=== PATIENT | female | born 1930 | race Caucasian/White ===

== ENCOUNTER 2017-01-13 15:37 | Emergency (ER) | payer MEDICARE, BC ==
--- NOTE | ~2017-01-13 | CR72 ---
[facility] A Service of [facility] & [facility] RADIOLOGY TEXT RESULTS PATIENT: ARMANI MALAGON LOCATION: [facility] : 32 UNIT #: [id number] AGE: [address]: Rd Blanco MD SEX: F ORDER DR: [id number] [facility] [address] [place], [place] [address] [id number] E MR#: [id number] Acc #: [id number] NAME: ARMANI MALAGON : 1930 SEX: F STUDY DATE/TIME: 01/13/2017 16:38 UNIT: [facility] ROOM: STUDY DESCRIPTION: CR Chest Single View Portable Attending Physician: Rd Blanco M.D. Ordering Physician: Rd Blanco M.D. Primary Care Physician: Lisa Malagon A.P.R.N. MEDICAL IMAGING REPORT This report is preliminary unless electronic signature is present EXAM Portable chest HISTORY Weakness and fever for 4 days. FINDINGS An AP portable view is obtained. Heart size is normal and the lungs appear clear. There is a calcified granuloma in the left base. CONCLUSION Negative portable chest Dictated by... Conor Esqueda M.D. THIS IS AN ELECTRONICALLY VERIFIED REPORT Conor Esqueda M.D. at 01/15/2017 7:14 AM SHAHLA/mary TD: 01/13/2017 19:04 JOB #: [id number] MEDICAL IMAGING REPORT Page 1 of 1 COPY
--- NOTE | ~2017-01-13 | EKG ---
PATIENT: ARMANI MALAGON UNIT #: [id number] Ventricular Rate: 87 BPM Atrial Rate: 87 BPM P-R Interval: 144 ms QRS Duration: 132 ms Q-T Interval: 372 ms QTC Calculation(Bezet): 447 ms P [place]: 47 degrees Calculated R [place]: 25 degrees Calculated T [place]: -5 degrees Diagnosis Line: Normal sinus rhythm Diagnosis Line: Right bundle branch block Diagnosis Line: T wave abnormality, consider inferior ischemia Diagnosis Line: Abnormal ECG Diagnosis Line: When compared with ECG of 10-NOV-2012 08:10, Diagnosis Line: No significant change was found Diagnosis Line: Confirmed by MARION PUCKETT MD ([id number]) on 01/14/2017 Diagnosis Line: 7:37:07 AM INTERPRETING MD: ITALO MCCOY
[~2017-01-13 15:37] MED LIST: CLARITIN10 M3 PO; COZAAR; ECOTRIN81 M1 PO; MULTI-VITAMIN1 EAC1 PO; VOLTAREN75 MG PO
[2017-01-13] MEDS ORDERED: BACLOFEN20 M1 PO (15:48)
[2017-01-13] MEDS ORDERED: OMEPRAZOLE40 M1 PO (15:48)
[2017-01-13] MEDS ORDERED: MACROBID100 M1 PO (15:49)
[2017-01-13] MEDS ORDERED: COZAAR100 MG PO (15:49)
[2017-01-13] MEDS ORDERED: BETAMETHASONE D15 G4 TOP (15:50)
[2017-01-13] MEDS ORDERED: NYSTATIN1 EAC1 MC (15:51)
[2017-01-13] MEDS ORDERED: ZYLOPRIM100 MG PO (15:52)
[2017-01-13] MEDS ORDERED: BAYER CHEWABLE81 MG PO (15:53)
[2017-01-13 17:09] LABS: BASOPHIL% 0.2 % (0-2.5); EOSINOPHIL% 0.1 % (0.0-7.0); HEMATOCRIT 38.6 % (35.0-45.0); HEMOGLOBIN 13.1 gm/dL (12.0-16.0); LYMPHOCYTE# 0.9 X10e3 (1.0-3.5); LYMPHOCYTE% 8.9 % (17.0-45.0); MEAN CELL VOLUME 94.7 FL (83-96); MEAN CORPUSCULAR HEMOGLOBIN 32.1 PG (28-34); MEAN CORPUSCULAR HGB CONC 33.8 g/dL (30-36); MEAN PLATELET VOLUME 7.6 FL (6.5-11.5); MONOCYTE# 0.9 X10e3 (0-1.0); MONOCYTE% 9.4 % (3.0-12.0); NEUTROPHIL# 8.2 X10e3 (1.5-7.1); NEUTROPHIL% 81.4 % (40-75); PLATELET COUNT 145 X10e3 (140-420); RED BLOOD COUNT 4.08 X10e (3.90-5.30); RED CELL DISTRIBUTION WIDTH 12.9 % (11.0-15.5)
[2017-01-13 17:14] LABS: DIFF IND NO
[2017-01-13 17:36] LABS: ALBUMIN SERUM 3.3 g/dL (3.5-5.0); BILIRUBIN, DIRECT 0.2 mg/dL (0.0-0.2); BILIRUBIN,INDIRECT 0.9 mg/dL (0.0-0.9); BILIRUBIN,TOTAL 1.1 mg/dL (0.2-2.0); GLOM FILT RATE Estimated 51.4 mL/min (>60); POTASSIUM 3.6 mmol/L (3.5-5.1); PROTEIN TOTAL SERUM 6.5 g/dL (6.0-8.3)
[2017-01-13 17:42] LABS: POC - CKMB 1.1 ng/mL (0.0-7.9); POC - TROPONIN <0.05 ng/mL (<=0.05)
[2017-01-13 18:26] LABS: URINE SOURCE CLEAN CATCH
[2017-01-13 18:37] LABS: URINE APPEARANCE CLOUDY; URINE BILIRUBIN NEG (NEG); URINE BLOOD 2+ (NEG); URINE COLOR DK YELLOW; URINE GLUCOSE NEG (NEG); URINE KETONE TRACE (NEG); URINE LEUKOCYTE ESTERASE 3+ (NEG); URINE NITRATE NEG (NEG); URINE PH 7.5 (5-8); URINE PROTEIN 2+ (NEG); URINE SPECIFIC GRAVITY 1.022 (1.003-1.035)
[2017-01-13 18:39] LABS: CULTURE INDICATED? YES; URINE BACTERIA AUWI 4+ (NEGATIVE); URINE SQUAMOUS EPITHELIAL CELL NONE SEEN /[HPF]; UWBCS1 AUWI INNUM (0-5)
== END 2017-01-13 20:31 | disposition home or self-care (01) ==
LOC: CED 15:37
PROVIDERS: Emergency Medicine
DX: N39.0 Urinary tract infection, site not specified (principal); I10 Essential (primary) hypertension; Z79.899 Other long term (current) drug therapy; Z79.82 Long term (current) use of aspirin; Z88.5 Allergy status to narcotic agent
CPT/HCPCS: 36415; 71010; 80048; 80076; 81003; 82550; 82553; 83605; 83690; 84484; 85025; 87086; 87088; 87186; 93005; 96365; 99284; J0696; J2405

== ENCOUNTER 2017-04-19 13:27 | Emergency (ER) | payer MEDICARE, BC ==
[~2017-04-19] VITALS: Ht 165.1 cm; Wt 81.6 kg
[~2017-04-19 13:27] MED LIST changes: +BACLOFEN20 M1 PO; +BAYER CHEWABLE81 MG PO; +BETAMETHASONE D15 G4 TOP; +COZAAR100 MG PO; +MACROBID100 M1 PO; +NYSTATIN1 EAC1 MC; +OMEPRAZOLE40 M1 PO; +ZYLOPRIM100 MG PO
[2017-04-19 14:30] LABS: URINE SOURCE CLEAN CATCH
[2017-04-19 14:35] LABS: URINE APPEARANCE HAZY; URINE BILIRUBIN NEG (NEG); URINE BLOOD TRACE-INTACT (NEG); URINE COLOR DK YELLOW; URINE GLUCOSE NEG (NORM); URINE KETONE NEG (NEG); URINE LEUKOCYTE ESTERASE 3+ (NEG); URINE NITRATE NEG (NEG); URINE PH 7.5 (5-8); URINE PROTEIN 1+ (NEG); URINE SPECIFIC GRAVITY 1.015 (1.003-1.035); URINE UROBILINOGEN 0.2 MG/DL (NORM)
[2017-04-19 14:36] LABS: BASOPHIL# 0.1 X10e3 (0-0.3); BASOPHIL% 0.6 % (0-2.5); EOSINOPHIL% 0.2 % (0.0-7.0); HEMATOCRIT 41.5 % (35.0-45.0); HEMOGLOBIN 14.1 gm/dL (12.0-16.0); LYMPHOCYTE# 1.4 X10e3 (1.0-3.5); LYMPHOCYTE% 10.5 % (17.0-45.0); MEAN CELL VOLUME 96.9 FL (83-96); MEAN CORPUSCULAR HEMOGLOBIN 32.9 PG (28-34); MEAN PLATELET VOLUME 7.4 FL (6.5-11.5); MONOCYTE# 0.9 X10e3 (0-1.0); NEUTROPHIL# 10.7 X10e3 (1.5-7.1); NEUTROPHIL% 81.7 % (40-75); PLATELET COUNT 169 X10e3 (140-420); RED BLOOD COUNT 4.28 X10e (3.90-5.30); RED CELL DISTRIBUTION WIDTH 13.3 % (11.0-15.5); WHITE BLOOD COUNT 13.1 X10e3 (4.0-10.5)
[2017-04-19 14:37] LABS: MICRO INDICATED? YES
[2017-04-19 14:37] LABS: DIFF IND NO
[2017-04-19 14:52] LABS: CULTURE INDICATED? YES; URINE BACTERIA 3+ (NEG); URINE SQUAMOUS EPITHELIAL CELL FEW /[HPF]; URINE TRANSITIONAL EPI CELLS OCCAS /[HPF]; URINE WBC 50-100 /[HPF] (0-5)
[2017-04-19 14:53] LABS: ALBUMIN SERUM 3.7 g/dL (3.5-5.0); BILIRUBIN, DIRECT 0.2 mg/dL (0.0-0.2); BILIRUBIN,INDIRECT 0.7 mg/dL (0.0-0.9); BILIRUBIN,TOTAL 0.9 mg/dL (0.2-2.0); BUN/CREATININE RATIO 16.66; CALCIUM SERUM 9.4 mg/dL (8.4-10.2); CREATININE SERUM 0.9 mg/dL (0.6-1.4); GLOM FILT RATE Estimated 58.3 mL/min (>60); POTASSIUM 3.6 mmol/L (3.5-5.1); PROTEIN TOTAL SERUM 7.3 g/dL (6.0-8.3)
== END 2017-04-19 16:42 | disposition home or self-care (01) ==
LOC: SED 13:27
PROVIDERS: Student in an Organized Health Care Education/Training Program
DX: N39.0 Urinary tract infection, site not specified (principal); I10 Essential (primary) hypertension; Z79.899 Other long term (current) drug therapy; Z79.82 Long term (current) use of aspirin; Z88.5 Allergy status to narcotic agent
CPT/HCPCS: 36415; 80048; 80076; 81003; 85025; 87086; 87088; 87186; 96365; 96375; 99284; J0696; J2405